=== PATIENT | male | born 1960 | race Caucasian/White ===

== ENCOUNTER 2024-10-27 08:23 | Day surgery (SDC) | payer SELFPAY, OTHER ==
[2024-10-27] VITALS (8 sets, daily range): BP systolic 97–122; BP diastolic 67–93; PULSE 46–61; RESP 16–18; TEMP 36.1–36.6; O2SAT 96–100; BMI 26.6
[2024-10-27] MEDS: Lactated Ringers 1,000 ML 15 ML IV (08:50)
--- NOTE | 2024-10-27 09:25 | PCM.PRE.AN2 ---
ASA Classification* ASA Classification ASA Classification: 2 Assessment & Plan Anesthesia* Anesthesia Assessment Anesthesia Assessment: Discussed sedation and/or anesthesia options, risks, benefits, and alternatives with patient/parents/legal guardian/POA. Questions invited. The patient/parents/legal guardian/POA seems to understand and agrees to proceed with anesthesia plan. Reviewed the physical assessment, medical history, allergy history and patient home medications list prior to surgery/procedure/anesthetic and documented any changes. Performed airway and anesthesia risk assessments. Anesthesia Type Anesthesia Type: MAC History Source History Obtained from:: Patient and Chart Anesthesia Focused Assessment* Temperature: 97.9 F Pulse Rate: 61 Blood Pressure: 120/93 Respiratory Rate: 16 Pulse Ox: 100 Airway Assessment Mouth opens: >3 cm Mallampati Score: II Teeth Condition: Dentures and Full Neck Range of motion (ROM): Full ROM Focused Labs Anesthesia Preop lab: CBC CHEMISTRY COAG Pre-Assessment Diagnosis/Proposed Procedure Planned Operative Procedure(s): CSCOPE Anesthesia History Anesthesia History - cutter aluminum sheet: Anesthesia History - cutter aluminum sheet Hx Hospitalization No 10/25/24 13:28 Any Problems With Anesthesia No 10/25/24 13:28 Cholinesterase deficiency No 10/25/24 13:28 You/Your Family Experience No 10/25/24 13:28 fever (hyperthermia) with Relationship Recent Exposure to Contagious No 10/27/24 08:46 Disease Does patient have nerve No 10/25/24 13:28 stimulator Patient instructed to have device shut off --Does patient have Pacemaker No 10/27/24 08:46 or ICD? When Was Last Pacemaker Check QUESTION #4 FULL TEXT: You/Your Family Experience fever (hyperthermia) with Anesthesia Any additional information?: No Last Oral Intake Last Oral intake: Last Oral Intake NPO since 20:00 10/27/24 08:46 Meds taken in AM with sips of No 10/27/24 08:46 water? Meds patient instructed to take am of surgery Any additional information?: No PONV PONV - cutter aluminum sheet: PONV - cutter aluminum sheet Female No 10/25/24 13:28 HX of Motion Sickness No 10/25/24 13:28 HX of N/V After Surgery No 10/25/24 13:28 Non-Smoker Yes 10/25/24 13:28 Duration of Surgery greater No 10/25/24 13:28 than 60 minutes Number of Risk Factors 1 10/25/24 13:28 PONV Score Low Risk 10/25/24 13:28 Any additional information?: No Height & Weight Height & Weight: Anesthesia: Height & Weight Height 5 ft 9 in 10/27/24 08:46 Weight: 82 kg 10/27/24 08:46 Body Mass Index (BMI) 26.6 10/27/24 08:46 Respiratory Assessment Respiratory Assessment - cutter aluminum sheet: Respiratory Tract Infection Hx - cutter aluminum sheet Hx Respiratory Tract Infection No 10/25/24 13:28 Any additional information?: No STOP Sleep Apnea STOP Sleep Apnea - cutter aluminum sheet: STOP Sleep Apnea - cutter aluminum sheet Hx Hypertension No 10/25/24 13:28 Hx Sleep Apnea No 10/25/24 13:28 CPAP BIPAP Do you snore loudly (louder No 10/25/24 13:28 than talking or can be heard Do you often feel tired/ No 10/25/24 13:28 fatigued/ sleepy during daytime? Has anyone observed you stop No 10/25/24 13:28 breathing during sleep? STOP Results Negative 10/25/24 13:28 QUESTION #5 FULL TEXT : Do you snore loudly (louder than talking or can be heard through closed doors)? 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 Specify any problems Hx of Preganancy in last 3 N/A 10/25/24 13:28 Months Nurse Filling Out Transfusion NBUCHER 05/28/25 13:28 & Questions: Date: 10/25/24 10/25/24 13:28 Time: 13:29 10/25/24 13:28 Patient unable to answer at this time (ie. confused, unrespo Any additional information?: No /Reproduction History /Reproductive History - cutter aluminum sheet: /Reproductive Hx- cutter aluminum sheet Hx Now No 10/25/24 13:28 Gestational Age (in weeks): EDC: Hx Hx Para Hx Section SAB No 10/25/24 13:28 Any additional information?: No Active Medications Active Medications: Current Medications Generic Name Dose Route Start Last Admin Trade Name Freq PRN Reason Stop Dose Admin Lactated Ringer's 1,000 mls @ 15 mls/hr 10/27/24 08:30 10/27/24 08:50 IV 15 mls/hr .Q48H SANDRA Administration PFSH Medical History (Updated 10/25/24 @ 13:33 by Keena Villalta) Loss of hearing Wears glasses Wears dentures MRSA infection Migraine headache Gastric reflux Heartburn Former smoker Leg cramps Positive colorectal cancer screening using Cologuard test Home Medications ?Medication ?Instructions ?Recorded ?Last Taken ?Type grape seed extract 50 mg capsule 150 mg PO DAILY 10/25/24 Unknown History Allergy/AdvReac Type Severity Reaction Status Date / Time No Known Allergies Allergy Verified 10/27/24 08:37 Family History Mother Colon cancer Surgical History (Updated 10/25/24 @ 13:33 by Keena Villalta) No history of previous surgery Social History Smoking Status: Former smoker alcohol intake: never substance use type: does not use Review of Systems (Anesthesia) ROS Narrative System reviewed and no additional complaints, except as documented.
--- NOTE | 2024-10-27 09:31 | HP.PCM_ITS ---
HPI - General General Date of Admission: 10/27/24 Date of Service: 10/27/24 Chief Complaint: positive cologuard HPI Narrative Patient is a 64-year-old male who is being seen today for colonoscopy after having done a Cologuard test which came back positive. He himself denies any recent GI issues or problems. It sounds as though he does have some issues with chronic constipation which seems to be well-managed. He does state that his mother had colon cancer. [facility] Medical History (Updated 10/25/24 @ 13:33 by Keena Villalta) Loss of hearing Wears glasses Wears dentures MRSA infection Migraine headache Gastric reflux Heartburn Former smoker Leg cramps Positive colorectal cancer screening using Cologuard test Home Medications ?Medication ?Instructions ?Recorded ?Last Taken ?Type grape seed extract 50 mg capsule 150 mg PO DAILY 10/25 Unknown History Allergy/AdvReac Type Severity Reaction Status Date / Time No Known Allergies Allergy Verified 10/27/24 08:37 Family History Mother Colon cancer Surgical History (Updated 10/25/24 @ 13:33 by Keena Villalta) No history of previous surgery Social History Smoking Status: Former smoker alcohol intake: never substance use type: does not use Vital Signs Vital Signs Vital Signs: 10/27/24 08:46 10/27/24 08:46 10/27/24 09:26 Temperature 97.9 F 97.9 F Temperature Source Temporal Pulse Rate 61 61 Respiratory Rate 16 16 Respiratory Pattern Normal Blood Pressure 120/93 H 120/93 H Blood Pressure Mean 102 Blood Pressure Source Monitor Blood Pressure Position Sitting Blood Pressure Location Left Arm Pulse Ox 100 100 Oxygen Delivery Method Room Air Weight Weight: 180 lb 12.465 oz Body Mass Index (BMI) 26.6 Physical Exam Const alert, oriented x3 and no apparent distress Assessment & Plan Assessment/Plan (1) Positive colorectal cancer screening using Cologuard test: PLAN: Plan colonoscopy today Charges/Coding Visit Charges Inpatient E&M: 60107 Init Hosp L2
--- NOTE | 2024-10-27 10:25 | PCM.POST.ANE ---
Anesthesia: Postop Eval I Current Vital Signs Temperature: 97.4 F Pulse Rate: 51 Blood Pressure: 122/87 Respiratory Rate: 18 Pulse Ox: 96 Assessment Airway patent: Yes Spontaneous unlabored respirations: Yes nausea: No Vomiting: No Anesthesia Complication: No Fluid Hydration Crystalloid volume administer (ml): 800 Total IV fluid infused: 800 Progress Note Anesthesia document: Postop Eval 1 completed: Yes
--- NOTE | 2024-10-27 10:31 | OP.CCLET_ITS ---
10/27/2024 Don Severino Re : Colonoscopy procedure for Arpan Latif Dear Markos This procedure was performed on Sunday, October 27, 2024. My impressions and recommendations are as follows: Impressions : - Internal hemorrhoids. - No specimens collected. Recommendations : - Discharge patient to home (ambulatory). - High fiber diet indefinitely. - Repeat colonoscopy in 10 years for screening purposes. - Return to my office PRN. - Continue present medications. My findings are described in the full procedure note, which is enclosed. If I can be of further assistance, please feel free to contact me at . Sincerely, Brandon Raza MD 10/27/2024 10:30:55 AM This report has been signed electronically.
--- NOTE | 2024-10-27 10:31 | OP.COLON_ITS ---
Patient Name: Arpan Latif Procedure Date: 10/27/2024 9:24 AM Date of : 1960 Age: 64 Procedure: Colonoscopy Indications: Positive Cologuard test Providers: Brandon Raza MD Referring MD: Don Severino Medicines: Monitored Anesthesia Care Patient Profile: Refer to note in patient chart for documentation of history and physical. Last Colonoscopy: none. The patient's first colonoscopy is today. Complications: No immediate complications. Estimated blood loss: None. Procedure: Pre-Anesthesia Assessment: - Prior to the procedure, a History and Physical was performed, and patient medications and allergies were reviewed. The patient's tolerance of previous anesthesia was also reviewed. The risks and benefits of the procedure and the sedation options and risks were discussed with the patient. All questions were answered, and informed consent was obtained. Prior Anticoagulants: The patient has taken no anticoagulant or antiplatelet agents. ASA Grade Assessment: II - A patient with mild systemic disease. After reviewing the risks and benefits, the patient was deemed in satisfactory condition to undergo the procedure. After I obtained informed consent, the scope was passed under direct vision. Throughout the procedure, the patient's blood pressure, pulse, and oxygen saturations were monitored continuously. The adult colonoscope was introduced through the anus and advanced to the cecum, identified by appendiceal orifice and ileocecal valve. The ileocecal valve, appendiceal orifice, and rectum were photographed. The entire colon was well visualized. Moderate Sedation: See the other procedure note for documentation of moderate sedation with intraservice time. Scope In: 9:46:44 AM Scope Withdrawal Time 0 hours 15 minutes 51 seconds Scope Out: 10:16:07 AM Total Procedure Duration Time 0 hours 29 minutes 23 seconds Findings: The perianal and digital rectal examinations were normal. Internal hemorrhoids were found during retroflexion. The hemorrhoids were mild. The exam was otherwise without abnormality on direct and retroflexion views. Impression: - Internal hemorrhoids. - No specimens collected. Recommendation: - Discharge patient to home (ambulatory). - High fiber diet indefinitely. - Repeat colonoscopy in 10 years for screening purposes. - Return to my office PRN. - Continue present medications. Procedure Code(s): --- Professional --- 96063, Colonoscopy, flexible; diagnostic, including collection of specimen(s) by brushing or washing, when performed (separate procedure) Diagnosis Code(s): --- Professional --- R19.5, Other fecal abnormalities K64.8, Other hemorrhoids CPT copyright 2021 [employer]. All rights reserved. The codes documented in this report are preliminary and upon lab assistant review may be revised to meet current compliance requirements. Brandon Raza MD 10/27/2024 10:30:55 AM This report has been signed electronically. Number of Addenda: 0 Note Initiated On: 10/27/2024 9:24 AM
--- NOTE | 2024-10-27 13:43 | POSTOPAN2_ITS ---
Anesthesia Postop Eval I Sum Postop Eval Completion status Anesthesia document: Postop Eval 1 completed: Yes Anesthesia Postop Eval I Summary Anesthesia Postop Eval I Summary: Anesthesia Postop Eval I: Assessment Summary Airway patent Yes 10/27/24 10:25 METALS [email or web address].CSIR Spontaneous unlabored Yes 10/27/24 10:25 METALS ANALYST.CSIR respirations Mental status nausea No 10/27/24 10:25 METALS ANALYST.CSIR Vomiting No 10/27/24 10:25 METALS ANALYST.CSIR Anesthesia Postop Eval I: Fluid Summary Crystalloid volume administer 800 10/27/24 10:25 METALS ANALYST.CSIR (ml) Colloids volume administered ( ml) Blood Product volume administered (ml) Total IV fluid infused 800 10/27/24 10:25 METALS ANALYST.CSIR Anesthesia Postop Eval I: Summary Notes Anesthesia Complication No 10/27/24 10:25 METALS ANALYST.CSIR Anesthesia Complication Comment: Post-operative progress note Anesthesia: Postop Eval II Evaluation Mental status: Awake Pain Level: 0 nausea: No Vomiting: No
--- NOTE | 2024-10-27 13:43 | PCM.POSTANE2 ---
Anesthesia Postop Eval I Sum Postop Eval Completion status Anesthesia document: Postop Eval 1 completed: Yes Anesthesia Postop Eval I Summary Anesthesia Postop Eval I Summary: Anesthesia Postop Eval I: Assessment Summary Airway patent Yes 10/27/24 10:25 REAL TIME [email or web address].CSIR Spontaneous unlabored Yes 10/27/24 10:25 REAL TIME TRADER.CSIR respirations Mental status nausea No 10/27/24 10:25 REAL TIME TRADER.CSIR Vomiting No 10/27/24 10:25 REAL TIME TRADER.CSIR Anesthesia Postop Eval I: Fluid Summary Crystalloid volume administer 800 10/27/24 10:25 REAL TIME TRADER.CSIR (ml) Colloids volume administered ( ml) Blood Product volume administered (ml) Total IV fluid infused 800 10/27/24 10:25 REAL TIME TRADER.CSIR Anesthesia Postop Eval I: Summary Notes Anesthesia Complication No 10/27/24 10:25 REAL TIME TRADER.CSIR Anesthesia Complication Comment: Post-operative progress note Anesthesia: Postop Eval II Evaluation Mental status: Awake Pain Level: 0 nausea: No Vomiting: No
== END 2024-10-27 11:24 | disposition home or self-care (01) ==
LOC: EN 08:26 → AC 08:27
PROVIDERS: PCP Physician Assistant; Referring Provider Physician Assistant; Visit Provider Surgery
PROC: 0DJD8ZZ Inspection of Lower Intestinal Tract, Via Natural or Artificial Opening Endoscopic (ICD-10-PCS; CPT 45378; principal; 2024-10-27 09:40)
DX: K64.8 Other hemorrhoids (principal); Z87.891 Personal history of nicotine dependence; R19.5 Other fecal abnormalities; Z80.0 Family history of malignant neoplasm of digestive organs; K21.9 Gastro-esophageal reflux disease without esophagitis
CPT/HCPCS: 45378; J2405